=== PATIENT | female | born 1955 | race Asian ===

== ENCOUNTER → 2018-01-08 | Outpatient (CLI) | payer BC, OTHER ==
[~2018-01-08] MED LIST: ASCO-188 PO; ASPI81TA94 PO; ATOR10TA65 PO; ATOR20TA65 PO; ESTR-25 PO; LORA-629 PO; MULT-27 PO; MULT1TAB64 PO; OMEG-11 PO; SIMV-49 PO; ZOST19404 SQ
--- NOTE | 2018-01-08 13:16 | RADIOLOGY IMAGING REPORT ---
FACILITY: [facility] - [place] PATIENT NAME: JULIA WILKES : [id number] MR: [id number] V: [id number] EXAM DATE: [id number] ORDERING PHYSICIAN: ARNEL WALKER TECHNOLOGIST: Mikaela Sheppard PROCEDURE:BILATERAL DIGITAL SCREENING MAMMOGRAM WITH CAD ASSISTED INTERPRETATION & 3D TOMOSYNTHESIS COMPARISON:12/26/16 & priors back to 12/02/13 INDICATIONS:SCREENING FINDINGS: Breast parenchyma is heterogeneously dense. There is an indistinct asymmetry & density in the lateral central Left breast in the CC view which is grossly stable comparing to 2014. There doesn't really appear to be a discrete mass associated with this on the tomosynthesis imaging or in the MLO projection. Overall, I don't think there is any concerning mammographic change. Right breast is mammographically negative & unchanged. DIAGNOSTIC CATEGORY 2--BENIGN FINDING. RECOMMENDATIONS: ROUTINE MAMMOGRAM AND CLINICAL EVALUATION. IMPRESSION: BIRADS 2: Benign finding. Dictated by: Arash Quintero on 01/08/2018 at 11:46 Transcribed by: AYAN on 01/08/2018 at 12:57 Approved by: Arash Quintero on 01/08/2018 at 13:16 [facility]
== END ==
LOC: MAMO 00:17
PROVIDERS: ATTEND Internal Medicine
DX: Z12.31 Encounter for screening mammogram for malignant neoplasm of breast (principal)
CPT/HCPCS: 77063; 77067

== ENCOUNTER → 2019-01-14 | Outpatient (CLI) | payer BC ==
--- NOTE | 2019-01-15 09:42 | RADIOLOGY IMAGING REPORT ---
[place] [facility] [place]IENT NAME: JULIA WILKES : [id number] MR: [id number] V: [id number] EXAM DATE: [id number] ORDERING PHYSICIAN: DAPHNEY GRAJEDA TECHNOLOGIST: Mikaela Sheppard PROCEDURE: BILATERAL DIGITAL SCREENING MAMMOGRAM WITH CAD ASSISTED INTERPRETATION & 3D TOMOSYNTHESIS REASON FOR STUDY: Screening FAMILY HISTORY OF BREAST CANCER: None BREAST PROCEDURES/TREATMENTS: None COMPARISON: 01/08/18, 01/02/17, 12/26/16, 12/14/15, 12/08/14, VIEWS OBTAINED: Bilateral 2D & 3D full field CC & MLO BREAST DENSITY: The breasts are heterogeneously dense which can obscure small masses. MAMMOGRAM FINDINGS: The parenchymal pattern has remained stable allowing for difference in mammographic technique & patient positioning. IMPRESSION: BIRADS 1: Negative. DIAGNOSTIC CATEGORY 1--NEGATIVE. RECOMMENDATIONS: ROUTINE MAMMOGRAM AND CLINICAL EVALUATION. Dictated by: Anna Kendall M.D. on 01/14/2019 at 16:59 Transcribed by: AYAN on 01/15/2019 at 6:58 Approved by: Anna Kendall M.D. on 01/15/2019 at 9:40 [facility]
== END ==
LOC: MAMO 00:10
PROVIDERS: ATTEND Nurse Practitioner Family
DX: Z12.31 Encounter for screening mammogram for malignant neoplasm of breast (principal)
CPT/HCPCS: 77063; 77067